=== PATIENT | female | born 1975 | race Caucasian/White ===

== ENCOUNTER 2016-09-02 12:59 | Emergency (ER) | payer OTHER ==
[~2016-09-02] VITALS: Ht 162.6 cm; Wt 61.8 kg
[2016-09-02 14:41] LABS: HEMATOCRIT 41.2 % (36.0-46.0); MCH 29.1 PG (29.0-34.0); MCHC 34.2 G/DL (30.0-36.0); MCV 85.1 FL (83-99); PLATELET COUNT 326 K/uL (156-360); RBC DIS.WIDTH-CV 12.9 % (11.8-14.6); RBC DIS.WIDTH-SD 39.2 % (39-53); RED BLOOD COUNT 4.84 M/uL (3.80-5.20); WHITE BLOOD COUNT 9.1 K/uL (4.1-10.2)
[2016-09-02] MEDS ORDERED: SUBOXONE 8 MG-1 EAC2 SL (15:07)
[2016-09-02 15:08] LABS: CHLORIDE 105 mEq/L (99-109); POTASSIUM 3.7 mEq/L (3.7-5.4); SODIUM 138 mEq/L (136-147)
[2016-09-02 15:10] LABS: GLUCOSE 77 mg/dL (70-99)
[2016-09-02 15:11] LABS: ANION GAP 12 MEQ/L (2-14)
[2016-09-02 15:12] LABS: TOTAL BILIRUBIN 0.6 mg/dL (0.0-1.0)
[2016-09-02 15:13] LABS: ALKALINE PHOSPHATASE 67 IU/L (3-129)
[2016-09-02 15:14] LABS: GFR ESTIMATE (CALCULATED) > 59 mL/min/
[2016-09-02 15:15] LABS: UREA NITROGEN (BUN) 19 mg/dL (9-23)
[2016-09-02 15:22] LABS: QUANTITATIVE HCG < 4.0 MIU/ML
[2016-09-02 15:55] LABS: ADD MIUA? YES; BILIRUBIN NEGATIVE; BLOOD SMALL; COLOR YELLOW ((YELLOW)); GLUCOSE (STRIP) NEGATIVE; KETONES >=80; LEUKOCYTES MODERATE; NITRITE NEGATIVE; PH, URINE 5.5 (5-8); PROTEIN (STRIP) NEGATIVE; SPECIFIC GRAVITY 1.022 (1.000-1.030); UROBILINOGEN 0.2 MG/DL (0.2-1.0)
[2016-09-02] MEDS ORDERED: ZOFRAN ODT4 MG PO (16:06)
[2016-09-02 16:22] LABS: EPITHELIAL CELLS 4+; MUCUS RARE; RED BLOOD CELLS 0-5 /HPF (0-5)
[2016-09-02 16:23] LABS: BACTERIA RARE; CASTS NONE SEEN /LPF; CRYSTALS NONE SEEN; UCUL ADDED? NO
[2016-09-02 16:34] VITALS: BP 122/84
== END 2016-09-02 16:48 | disposition home or self-care (01) ==
LOC: EXP 12:59 → EME 12:59 → EXP 16:48
PROVIDERS: Nurse Practitioner Family
DX: R11.10 Vomiting, unspecified (principal); R19.7 Diarrhea, unspecified; E86.0 Dehydration; Z97.5 Presence of (intrauterine) contraceptive device; Z87.891 Personal history of nicotine dependence
CPT/HCPCS: 80053; 81003; 84702; 85027; 99281; 99284; J2405; J7030